=== PATIENT | female | born 1960 | race African-American/Black ===

== ENCOUNTER 2017-06-21 13:09 | Emergency (ER) | payer OTHER ==
[2017-06-21 13:51] LABS: #Eosinphils 0.3 thou/uL (0.0-0.7); #Lymphocytes 1.6 thou/uL (1.20-3.40); #Monocytes 0.3 thou/uL (0.11-0.59); #Neutrophils 2.3 thou/uL (1.40-6.50); %Basophils 0.3 % (0.0-1.0); %Eosinophils 7.2 % (0.0-10.0); %Monocytes 7.2 % (0.0-10.0); %Neutrophils 50.2 % (42.0-75.0); Hemoglobin 13.4 g/dL (12.0-16.0); Mean Corpuscular HGB CONC 33.7 g/dL (32.0-36.0); Mean Corpuscular Hemoglobin 29.8 pg (27.0-31.0); Mean Corpuscular Volume 88.6 fl (81.0-99.0); Platelet Count 270 thou/uL (130-400); RBC Distribution Width 13.2 % (11.5-14.5); White Blood Cell (WBC) Count 4.5 thou/uL (4.8-10.8)
[2017-06-21 14:13] LABS: ALT (SGPT) 23 U/L (8-55); AST (SGOT) 20 U/L (5-34); Albumin 4.3 g/dL (3.5-5.0); Alkaline Phosphatase 68 U/L (40-150); Anion Gap 12 mmol/L (10-20); BUN (Urea Nitrogen) 15 mg/dL (9.8-20.1); Bilirubin, Total 0.5 mg/dL (0.2-1.2); Calc. Creatinine Clearance 0 mL/min (70-130); Calcium 9.5 mg/dL (7.8-10.44); Carbon Dioxide 27 mmol/L (22-29); Chloride 103 mmol/L (98-107); Estimated GFR-MDRD 75; Globulin 3.4 g/dL (2.4-3.5); Glucose 107 mg/dL (70-105); Potassium 3.4 mmol/L (3.5-5.1); Protein, Total 7.7 g/dL (6.0-8.3); Sodium 139 mmol/L (136-145)
[2017-06-21 15:56] LABS: Bilirubin Negative (Negative); Blood, Urine Negative (Negative); Clarity CLEAR (Clear); Glucose, Urine (Dipstick) Negative (Negative); Leukocyte Negative (Negative); Nitrite Negative (Negative); Protein, Urine (Dipstick) Negative (Neg-Trace); Specific Gravity, Urine 1.012 (1.002-1.036)
[2017-06-21] MEDS ORDERED: Ketorolac Tromethamine 30 MG/ML VIAL ONE (16:06)
[2017-06-21] MEDS ORDERED: ISOVUE-370 76%-LOCM 1 ML ONE (16:47)
--- NOTE | 2017-06-21 17:02 | CT ---
CT OF ABDOMEN AND PELVIS PERFORMED WITH INTRAVENOUS CONTRAST ENHANCEMENT: 06/21/17 HISTORY: Abdomen pain with more left sided flank pain x1 year. History of kidney stone. Subsegmental atelectatic changes are seen in the lung bases. Liver shows suggestion of fatty change. The spleen, pancreas and gallbladder regions appear unremarka ble. Right and left adrenal glands are normal in appearance. Small hypodensities involving the left kidney are statistically most likely cysts. No obstruction or any renal calculi. No significant periaortic or mesenteric adenopathy. There is a moderate amount of stool within the colon. CT OF PELVIS PERFORMED WITH CONTRAST ENHANCEMENT: No adenopathy, mass or free fluid. The appendix is unremarkable. IMPRESSION: No acute abnormalities of the abdomen or pelvis. Moderate amount of stool noted within the colon. POS: [facility]
== END 2017-06-21 17:31 | disposition home or self-care (01) ==
LOC: ERS 13:09
DX: R10.9 Unspecified abdominal pain (principal); E78.5 Hyperlipidemia, unspecified; I10 Essential (primary) hypertension; Z79.899 Other long term (current) drug therapy
CPT/HCPCS: 36415; 74177; 80053; 81003; 83690; 83735; 85025; 87086; 96374; 96375; J1885; J2270